=== PATIENT | male | born 1960 ===

== ENCOUNTER 2021-05-08 12:47 | Outpatient (REF) | payer OTHER, SELFPAY | END 2021-05-08 12:48 | disposition home or self-care (01) | LOC: HO.BBR 12:47 | PROVIDERS: Visit Provider Physician Assistant | DX: Z13.89 Encounter for screening for other disorder (principal) ==

== ENCOUNTER 2021-08-06 13:00 | Outpatient (REF) | payer OTHER, SELFPAY | END 2021-08-06 13:01 | disposition home or self-care (01) | LOC: HO.BBR 13:00 | PROVIDERS: Visit Provider Physician Assistant | DX: Z13.89 Encounter for screening for other disorder (principal) ==

== ENCOUNTER 2021-11-05 10:23 | Outpatient (REF) | payer OTHER, SELFPAY | END 2021-11-05 10:24 | disposition home or self-care (01) | LOC: HO.BBR 10:23 | PROVIDERS: Visit Provider Physician Assistant | DX: Z13.89 Encounter for screening for other disorder (principal) ==

== ENCOUNTER 2022-01-28 11:20 | Outpatient (REF) | payer OTHER, SELFPAY | END 2022-01-28 11:21 | disposition home or self-care (01) | LOC: HO.BBR 11:20 | PROVIDERS: Visit Provider Internal Medicine Hematology & Oncology | DX: Z13.89 Encounter for screening for other disorder (principal) ==

== ENCOUNTER 2022-06-10 11:11 | Outpatient (REF) | payer OTHER, SELFPAY | END 2022-06-10 11:12 | disposition home or self-care (01) | LOC: HO.BBR 11:11 | PROVIDERS: Visit Provider Internal Medicine Hematology & Oncology | DX: Z13.89 Encounter for screening for other disorder (principal) ==

== ENCOUNTER 2022-09-10 10:54 | Outpatient (REF) | payer OTHER, SELFPAY | END 2022-09-10 10:55 | disposition home or self-care (01) | LOC: HO.BBR 10:54 | PROVIDERS: Visit Provider Internal Medicine Hematology & Oncology | DX: Z13.89 Encounter for screening for other disorder (principal) ==

== ENCOUNTER 2022-11-25 09:59 | Outpatient (REF) | payer OTHER, SELFPAY | END 2022-11-25 10:00 | disposition home or self-care (01) | LOC: HO.BBR 09:59 | PROVIDERS: Visit Provider Internal Medicine Hematology & Oncology | DX: Z13.89 Encounter for screening for other disorder (principal) ==

== ENCOUNTER 2023-02-25 09:54 | Outpatient (REF) | payer OTHER, SELFPAY | END 2023-02-25 09:55 | disposition home or self-care (01) | LOC: HO.BBR 09:54 | PROVIDERS: Visit Provider Internal Medicine Hematology & Oncology | DX: Z13.89 Encounter for screening for other disorder (principal) ==

== ENCOUNTER 2023-09-15 08:55 | Outpatient (REF) | payer OTHER, SELFPAY | END 2023-09-15 08:56 | disposition home or self-care (01) | LOC: HO.BBR 08:55 | PROVIDERS: Visit Provider Internal Medicine Hematology & Oncology | DX: Z13.89 Encounter for screening for other disorder (principal) ==

== ENCOUNTER 2023-12-15 09:00 | Outpatient (REF) | payer OTHER, SELFPAY | END 2023-12-15 09:01 | disposition home or self-care (01) | LOC: HO.BBR 09:00 | PROVIDERS: Visit Provider Internal Medicine Hematology | DX: Z13.89 Encounter for screening for other disorder (principal) ==

== ENCOUNTER 2024-03-14 11:08 | Outpatient (REF) | payer OTHER, SELFPAY | END 2024-03-14 11:09 | disposition home or self-care (01) | LOC: HO.BBR 11:08 | PROVIDERS: Visit Provider Internal Medicine Hematology | DX: Z13.89 Encounter for screening for other disorder (principal) ==

== ENCOUNTER 2024-09-13 09:57 | Outpatient (REF) | payer OTHER, SELFPAY ==
--- OUTSIDE RECORDS SUMMARY | 2024-09-13 10:50 | XMS_ITS | Patient Health Record ---
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 Name Role Phone Edinson Mcgee MD Primary Care Provider Edinson Vazquez Unavailable [phone] Janes Gonzalez MD Unavailable Unavailable Reason For Referral No Information Medications Medication SIG (Take, Route, Fr equency, Duration) Notes Start Date End Date Status HYDROmorphone HCl Ac tive predniSONE Active Vitamin D Active Losartan Potassium A ctive HYDROcodone-Ibuprofen Active Social History Tobacco Use: Social History Observation Description Date Details (start date - stop date) Former Smoker NA - NA Tobacco Use/Smoking Question Answer Notes Status: former smoker How long has it been since you last smoked? > 10 years Alcohol Screen (Audit-C) Question Answer Notes Did you have a drink contain ing alcohol in the past year? Yes How often did you have 6 or more drinks on one occasion in the past year? Less than monthly (1 point) How many drinks did you have on a typical day when you were drinking in the past year? 1 or 2 drinks (0 point) How often did you have a dri nk containing alcohol in the past year? Monthly or less (1 point) Plan Of Treatment No Information Insurance Providers Payer Name Payer Address Payer Phone Subscriber Number Group Number Insured Name Patient Relationship to Insured Coverage Start Date Coverage End Date [employer] [address] [place] [phone] [id number] JULIEN FARIA Self - patient is the insured Medical (General) History Medical History History ICD Code : hypertension, hemocroatosis Surgical History Surgery Date(Month/Year) right elbow (01/03), ulvoectomy (11/2008 ) Hospitalization History Reason Date(Month/Year)
== END 2024-09-13 09:58 | disposition home or self-care (01) ==
LOC: HO.BBR 09:57
PROVIDERS: PCP Internal Medicine; Visit Provider Internal Medicine Hematology
DX: Z13.89 Encounter for screening for other disorder (principal)

== ENCOUNTER 2024-12-06 10:11 | Outpatient (REF) | payer OTHER, SELFPAY ==
--- OUTSIDE RECORDS SUMMARY | 2024-12-06 11:25 | XMS_ITS | Patient Health Record ---
Author Organization [facility] Address [address] [place] [address] Care Team Providers Care Long Term Care Administrator Name Role Phone Edinson Mcgee MD Primary Care Provider Edinson Vazquez Unavailable [phone] Janes Gonzalez MD Unavailable Unavailable Reason For [...] Insured Coverage Start Date Coverage End Date [employer] [facility] [address] [place] [phone] [id number] JULIEN FARIA Self - patient is the insured Medical (General) History Medical History History ICD Code : hypertension, hemocroatosis Surgical History Surgery Date(Month/Year) right elbow (01/03), ulvoectomy (11/2008 ) Hospitalization History Reason Date(Month/Year)
--- OUTSIDE RECORDS SUMMARY | 2024-12-06 11:25 | XMS_ITS | Clinical Summary ---
Author Organization [facility] Address [address] [place] [address] Phone Care Team Providers Care Social Worker Aide Name Role Phone Pcp, Not Required Primary Care Provider Unavaila ble Social History Tobacco Use Types Packs/Day Years Used Date Smoking Tobacco: Never Assessed Education Answer Date Recorded Are you interested in more education? Not on carolann e 08/15/2022 Are you concerned about learning? Not on file 08/15/2022 No 08/15/2022 No 08/15/2022 Digital Access Answer Date Recorded No 09/13/2022 No 09/13/2022 No 09/13/2022 Reliable internet access at home? Not on file 09/13/2022 Device with a working camera? Not on file Sex and Gender Information Value Date Recorded Sex Assigned at Male 02/10/2022 3:27 PM EDT Legal Sex Male 3:26 PM EDT Gender Identity Male 02/10/2022 3:27 PM EDT Sexual Orientation Straight 02/10/2022 3: 27 PM EDT Plan of Treatment Health Maintenance Due Date Last Done Comments Adult Td,Tdap Booster 1961 LIPID PANEL 1961 DEPRESSION SCREENING 1973 SMOKING Hx and SMOKELESS TOBACCO SCREENING 1974 HEPATITIS C SCREENING 1979 HIV ONE-TIME SCREENING (18-6 5 YEARS) 1979 COLOGUARD 2006 COLONOSCOPY 2006 COLORECTAL CANCER SCREENING 2006 FIT TEST 2006 FOBT 2006 SIGMOIDOSCOPY 2006 VIRTUAL COLONOSCOPY 2006 PNEUMOCOCCAL VACCINES (50+ years) (1 of 1 - PCV) 2011 ZOSTER VACCINES (1 of 2) 2011 COVID-19 VACCINE (4 - 2023-2 5 season) 2023 02/04/2021, 07/09/2020, 06/18/2020 RSV VACCINE (1 - 1-dose 75+ series) 2036 HEPATITIS A VACCINES Aged Out 08/07/2017, 09/23/2016 No longer eligible based on patient's age to complete this topic HIB VACCINES Aged Out No longer eligi ble based on patient's age to complete this topic MENINGOCOCCAL VACCINES (ACWY) Aged Out No longer eligible based on patient's age to complete this topic MENINGOCOCCAL VACCINES (B) Aged Out N o longer eligible based on patient's age to complete this topic Medical Devices Not on file Insurance [employer] P[employer] [facility] [place] [id number] [employer] PPO CIGNA PPO Member Subscriber Plan / Payer (Ef fective 2020-Present) Name:Eladio Levy Relation to Subscriber:Self Name:Eladio Levy Payer ID:[id number] (NAIC) Type:PPO Address: [address] [place] [id number] [id number] C[employer] PPO CIGNA PPO CIG[employer] PPO CIG[employer] PPO Care Teams Social Worker Aide Relationship Specialty Start Date End Date Pcp, Not Required [address] [place] [id number] PCP - General 02/10/22 Additional Source Comments The information contained in this document represents components of the legal health record. It is not the complete legal health record.[facility]
== END 2024-12-06 10:12 | disposition home or self-care (01) ==
LOC: HO.BBR 10:11
PROVIDERS: PCP Internal Medicine; Visit Provider Nurse Practitioner Adult Health
DX: Z13.89 Encounter for screening for other disorder (principal)

== ENCOUNTER 2025-03-05 10:03 | Outpatient (REF) | payer OTHER, SELFPAY ==
--- OUTSIDE RECORDS SUMMARY | 2025-03-05 20:53 | XMS_ITS | Clinical Summary ---
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 Name Role Phone Pcp, Not Required Primary [...] HEPATITIS C SCREENING 1979 HIV ONE-TIME SCREENING (18-65 YEARS) 1979 COLOGUARD 2006 COLONOSCOPY 2006 COLORECTAL CANCER SCREENING 2006 FIT TEST 2006 FOBT 2006 SIGMOIDOSCOPY 2006 VIRTUAL COLONOSCOPY 2006 PNEUMOCOCCAL VACCINES (50+ years) (1 of 1 - PCV) 2011 ZOSTER VACCINES (1 of 2) 2011 INFLUENZA VACCINE (#1) 2024 , 01/05/2018, 01/14/2017, Additional history exists COVID-19 VACCINE ( - 2024- season) 2024 02/04/2021, 07/09/2020, 06/18/2020 RSV VACCINE (1 - 1-dose 75+ series) 2036 HEPATITIS A VACCINES Aged Out 08/07/2017, 09/24/19 17 No longer eligible based on patient's age to complete this topic HIB VACCINES Aged Out No longer eligi ble based on patient's age to complete this topic IPV VACCINES Aged Out No longer eligi ble based on patient's age to complete this topic MENINGOCOCCAL VACCINES (ACWY) Aged Out No longer eligible based on patient's age to complete this topic MENINGOCOCCAL VACCINES (B) Aged Out N o longer eligible based on patient's age to complete this topic Medical Devices Not on file Insurance C[employer] PPO CIGNA PPO CIGNA PPO CIGNA PPO CIGNA PPO Member Subscriber Plan / Payer (Ef fective 2020-Present) Name:Eladio Levy Relation to Subscriber:Self Name:Eladio Levy Payer ID:[id number] (NA) Type:PPO Address: [address] [place] [id number] [employer] PPO CIGNA PPO CIGNA PPO Member Subscriber Plan / Payer (Ef fective 2020-Present) Name:Eladio Levy Relation to Subscriber:Self Name:Eladio Levy Payer ID:[id number] (NAIC) Type:PPO Address: [address] [place] [id number] [employer] PPO Care Teams [employer] Teacher Relationship Specialty Start Date End Date Pcp, Not Required [address] [place] [id number] PCP - General 02/10/22 Additional Source Comments The information contained in this document represents components of the legal health record. It is not the complete legal health record.[facility]
== END 2025-03-05 10:04 | disposition home or self-care (01) ==
LOC: HO.BBR 10:03
PROVIDERS: PCP Internal Medicine; Visit Provider Nurse Practitioner Adult Health
DX: Z13.89 Encounter for screening for other disorder (principal)